=== PATIENT | male | born 1990 | race Hispanic/Latino ===

== ENCOUNTER 2024-12-15 09:26 | Emergency (ER) | payer OTHER ==
[~2024-12-15] VITALS: Ht 180.3 cm; Wt 106.1 kg
[2024-12-15] MEDS ORDERED: DOCUSATE SODIU100 MG PO (09:46)
[2024-12-15] MEDS ORDERED: SUBOXONE 8 MG-1 EAC1 SL (09:46)
[2024-12-15] MEDS ORDERED: SENNA8.6 MG PO (09:47)
[2024-12-15] MEDS ORDERED: MIRALAX17 GM PO (09:54)
[2024-12-15] MEDS ORDERED: CLONIDINE HCL0.1 M1 PO (09:55)
[2024-12-15] MEDS ORDERED: DICYCLOMINE HCL20 MG PO (09:56)
[2024-12-15] MEDS ORDERED: LOPERAMIDE2 M1 PO (09:56)
[2024-12-15] MEDS ORDERED: ACETAMINOPHEN325 M1 PO (09:57)
[2024-12-15] MEDS ORDERED: ONDANSETRON ODT8 MG PO (09:57)
[2024-12-15 11:40] VITALS: BP 134/101
== END 2024-12-15 11:10 | disposition home or self-care (01) ==
LOC: ED 09:26
DX: S62.336A Displaced fracture of neck of fifth metacarpal bone, right hand, initial encounter for closed fracture (principal); Y04.0XXA Assault by unarmed brawl or fight, initial encounter; F31.9 Bipolar disorder, unspecified; Z79.899 Other long term (current) drug therapy
CPT/HCPCS: 29125; 73130; 99283-25

== ENCOUNTER 2025-01-31 08:30 | Day surgery (SDC) | payer OTHER ==
[~2025-01-31] VITALS: Ht 180.3 cm; Wt 103.6 kg
[~2025-01-31 08:30] MED LIST: ACETAMINOPHEN325 M1 PO; BUPRENORPHIN-N1 EACH SL; BUPRENORPHINE-1 EACH SL; CEFAZOLIN SODIUM 2 GM/20 ML SYR IV SCH; CLONIDINE HCL0.1 M1 PO; DICYCLOMINE HCL20 MG PO; DOCUSATE SODIU100 MG PO; DULOXETINE HCL60 MG PO; IBLOOD GLUCOSE TEST STRIP 1 EA TEST VI PRN; IBU-200200 MG PO; LACTATED RINGER'S 1,000 ML IV SCH; LIDOCAINE HCL 1% 5 ML SDV INJ ONE; LOPERAMIDE2 M1 PO; MIRALAX17 GM PO; NAPROXEN500 M1 PO; ONDANSETRON ODT8 MG PO; SENNA8.6 MG PO; SUBOXONE 8 MG-1 EAC1 SL
[2025-01-31 08:46] VITALS: BP 125/76
[2025-01-31 08:52] VITALS: BP 125/76
[2025-01-31] MEDS ORDERED: DEXAMETHASONE SOD PHOS 4 MG/ML VIAL ONE (09:04)
[2025-01-31] MEDS ORDERED: propofoL 200 MG/20 ML VIAL ONE (09:04)
[2025-01-31] MEDS ORDERED: Ropivacaine HCl 0.5% 30 ML VIAL ONE (09:04)
[2025-01-31] MEDS ORDERED: dexmedeTOMIDine HCl 200 MCG/2 ML VIAL ONE (09:04)
[2025-01-31] MEDS ORDERED: LIDOCAINE HCL 2% 5 ML SDV ONE ×2 (09:04→12:17)
[2025-01-31] MEDS ORDERED: SODIUM CHLORIDE 0.9% 20 ML IV ONE (09:04)
[2025-01-31] MEDS ORDERED: MIDAZOLAM HCL 2 MG/2 ML VIAL ONE (09:05)
--- NOTE | 2025-01-31 09:36 | NUR ---
0932 xray completed of venkat pearson
--- NOTE | 2025-01-31 11:24 | NUR ---
1030 UPDATE GIVEN. IV PATENT.
--- NOTE | 2025-01-31 11:25 | NUR ---
1115 ANGELIQUE IN TO TALK WITH PT. DR BELLE IN TO TALK WITH PT.
[2025-01-31 11:43] VITALS: BP 131/60
[2025-01-31] MEDS ORDERED: HYDROCODONE/ACETA 5/325 TAB PO PRN (12:15)
[2025-01-31] MEDS ORDERED: ACETAMINOPHEN 1,000 MG/100 ML VIAL ONE (12:17)
[2025-01-31] MEDS ORDERED: ondansetron HCL 4 MG/2 ML VIAL ONE (12:17)
[2025-01-31] MEDS ORDERED: KETOROLAC TROMETHAMINE 30 MG/ML VIAL ONE (12:44)
[2025-01-31] MEDS ORDERED: PROCHLORPERAZINE EDISYLATE 10 MG/2 ML VIAL IV PRN (12:45)
[2025-01-31] MEDS ORDERED: IBLOOD GLUCOSE TEST STRIP 1 EA TEST VI PRN (12:45)
[2025-01-31] MEDS ORDERED: ondansetron HCL 4 MG/2 ML VIAL IV PRN (12:45)
[2025-01-31] MEDS ORDERED: HYDROmorphone HCL 1 MG/ML SYR IV PRN (12:45)
[2025-01-31] MEDS ORDERED: NALOXONE HCL 0.4 MG SYR IV PRN (12:45)
[2025-01-31] MEDS ORDERED: droPERidol 5 MG/2 ML VIAL IV PRN (12:45)
[2025-01-31] MEDS ORDERED: fentaNYL citrate 50 MCG/ML SDV IV PRN (12:45)
[2025-01-31] MEDS ORDERED: HYDROCODON-ACE1 EA10 PO (12:54)
--- NOTE | 2025-01-31 13:22 | NUR ---
01/31/25 1322 Ava Sewell 1257 PT ARRIVED IN PACU SLEEPY. R HAND ELEVATED ON PILLOWS. 1310 PT AWAKENS TO VERBAL STIMULI, THEN FALLS BACK TO SLEEP. 1322 SNORING. REU.
[2025-01-31 13:35] VITALS: BP 113/69
--- NOTE | 2025-01-31 13:38 | NUR ---
RETURNED AND CALL LIGHT GIVEN. NO ONE WAITING.
--- NOTE | 2025-01-31 14:47 | NUR ---
1430 REVIEWED COMPUTER PRINT OUT PAPERWORK WITH PT. STATES UNDERSTANDS AND WILL REREAD AT HOME. FRIEND HELPED GET DRESSED. ICE AND SLING ON. REVIEWED TO BE AWARE OF R ARM UNTIL BLOCK WEARS OFF.
--- NOTE | 2025-02-02 06:42 | OR ---
[facility] [address] [place], [place] [address] Signed DATE OF OPERATION: 01/31/2025 SURGEON: Adelaide Cash MD PREOPERATIVE DIAGNOSIS: Right 5th metacarpal fracture angulated. POSTOPERATIVE DIAGNOSIS: Right 5th metacarpal fracture angulated. PROCEDURE PERFORMED: Closed reduction and percutaneous, pinning right 5th metacarpal. METAL FURNITURE ASSEMBLER: Angela Fitzgerald PA-C ANESTHESIA: General. BLOOD LOSS: Minimal. IMPLANTS: Two 1.6 K-wires. BRIEF HISTORY: Frankie is a 34-year-old gentleman, who suffered a ground-level fall creating a boxer's fracture of his right hand. This occurred while he was in [facility] and his subsequent surgery was delayed secondary to getting out of [facility]. He then showed up for surgery and had drank coffee, so surgery was once again delayed. On his presentation today, we talked about the possibility we might not be able to fix this due to healing. We discussed going ahead and proceeding with closed reduction and percutaneous pinning and he was okay with that. DESCRIPTION OF PROCEDURE: Once consent was obtained, he was taken to the operating room. After adequate anesthesia, he was placed on the operating room table with a hand table. The arm was prepped and draped in a standard sterile fashion. I was unable to close or reduce it adequately. I then introduced a 2.0 K-wire into the fracture site and using it as a lever was able to get the metacarpal back into a straightened position. Rotation was Electronically Signed By: ADELAIDE CASH MD 02/02/25 0642 PATIENT NAME: FRANKIE RESENDIZ OPERATIVE REPORT DATE OF : 86 REPORT #: [id number] PHYSICIAN: ADELAIDE CASH MD PCP: ELLA SANDERS DR REPORT IS CONFIDENTIAL AND NOT TO BE RELEASED WITHOUT AUTHORIZATION [facility] [address] [place] [address] Signed good. We then introduced two 1.6 K-wires, one from distal, one from proximal across the fracture engaging the metacarpal distal to it. Once this was completed, the 2.0 K-wire was removed. He had good alignment in both planes. Both pins were cut and covered with Jur[place] balls. He was then placed in an ulnar gutter splint, awakened and taken to the recovery room in satisfactory condition. All sponge, needle, and instrument counts correct. Adelaide Cash MD BA/VANESSAL /[id number] Copies: ~ Electronically Signed By: ADELAIDE CASH MD 02/02/25 0642 PATIENT NAME: FRANKIE RESENDIZ OPERATIVE REPORT DATE OF : 86 REPORT #: [id number] PHYSICIAN: ADELAIDE CASH MD PCP: ELLA SANDERS DR REPORT IS CONFIDENTIAL AND NOT TO BE RELEASED WITHOUT AUTHORIZATION
== END 2025-01-31 14:37 | disposition home or self-care (01) ==
LOC: DS 08:30
PROVIDERS: ATTEND Specialist
PROC: 0PSPXZZ Reposition Right Metacarpal, External Approach (ICD-10-PCS; principal; 2025-01-31 12:40)
DX: S62.326A Displaced fracture of shaft of fifth metacarpal bone, right hand, initial encounter for closed fracture (principal); W18.30XA Fall on same level, unspecified, initial encounter
CPT/HCPCS: 01820; 64417; 73120; 73130; J0131; J0690; J1100; J1885; J2003; J2250; J2405; J2704; J2795; J7121